=== PATIENT | male | born 1990 | race Caucasian/White ===

== ENCOUNTER 2018-11-24 02:43 | Emergency (ER) | payer SELFPAY ==
[~2018-11-24] VITALS: Wt 103.6 kg
[2018-11-24 02:53] VITALS: BP 119/62; PULSE 98; RESP 18
--- NOTE | 2018-11-24 04:13 | ERD ---
ER Documentation Chief Complaint Chief Complaint FAMILY MEMBER DX WITH SCABIES YESTERDAY; PT NOW C/O BODY WIDE ITCHING HPI Is a 28-year-old male coming with complaints of body with itching after family was diagnosed with scabies. Denies fevers chills nausea vomiting. Denies any other current complaints. ROS All systems reviewed and are negative except as per history of present illness. Physical Exam Vitals Vital Signs Date Temp Pulse Resp B/P (MAP) Pulse Ox O2 O2 Flow FiO2 Time Delivery Rate 11/24/18 97.3 98 18 119/62 98 02:53 (81) Physical Exam Const: No acute distress Head: Atraumatic Eyes: Normal Conjunctiva ENT: Normal External Ears, Nose and Mouth. Neck: Full range of motion. No meningismus. Resp: Clear to auscultation bilaterally Cardio: Regular rate and rhythm, no murmurs Abd: Soft, non tender, non distended. Normal bowel sounds Skin: No petechiae or rashes Back: No midline or flank tenderness Ext: No cyanosis, or edema Neur: Awake and alert Psych: Normal Mood and Affect Procedures/MDM Medical decision makin-year-old male with possible exposure to scabies with complaints of itching. At this point clinically stable for outpatient management. Will be discharged home with permethrin. Follow-up with PCP. Departure Diagnosis: Primary Impression: Rash Condition: Stable MARK STROUD Nov 24, 2018 04:13
[2018-11-24] MEDS ORDERED: ELIM TOP (04:19)
== END 2018-11-24 04:45 | disposition home or self-care (01) ==
LOC: E/R 02:43
DX: R21 Rash and other nonspecific skin eruption (principal)
CPT/HCPCS: 99282